=== PATIENT | male | born 1970 | race Caucasian/White ===

== ENCOUNTER 2017-11-05 20:28 | Emergency (ER) | payer OTHER ==
[~2017-11-05] VITALS: Ht 182.9 cm; Wt 105.9 kg
[2017-11-05] MEDS ORDERED: VALIUM2 MG PO (22:03)
[2017-11-05] MEDS ORDERED: MOTRIN600 MG PO (22:03)
[2017-11-05 22:13] VITALS: BP 135/92
== END 2017-11-05 22:14 | disposition home or self-care (01) ==
LOC: EME 20:28
DX: S16.1XXA Strain of muscle, fascia and tendon at neck level, initial encounter (principal); R51 Headache; V49.40XA Driver injured in collision with unspecified motor vehicles in traffic accident, initial encounter; Y92.410 Unspecified street and highway as the place of occurrence of the external cause
CPT/HCPCS: 70450; 72125; 99281; 99284